=== PATIENT | female | born 1955 | race Caucasian/White ===

== ENCOUNTER 2023-08-31 08:53 | Outpatient (RCR) | payer MEDICARE, BC, SELFPAY | END 2023-09-27 23:59 | disposition home or self-care (01) | LOC: SCTC 08:53 | PROVIDERS: PCP Family Medicine; Referring Provider Family Medicine; Visit Provider Nurse Practitioner Family | DX: Z53.8 Procedure and treatment not carried out for other reasons (principal) ==

== ENCOUNTER → 2024-05-30 | Outpatient (CLI) | payer MEDICARE, BC, SELFPAY ==
[2024-05-30 10:21] LABS: Collection Type, Urine Clean Catch
[2024-05-30 10:57] LABS: Basophils # (Auto) 0.1 Thou/mm3 (0.0-0.2); Basophils % (Auto) 1 % (0-2.5); Eosinophils # (Auto) 0.2 Thou/mm3 (0.0-0.5); Eosinophils % (Auto) 5 % (0-10); Hematocrit 38.4 % (36.0-46.0); Immature Granulocytes % (Auto) 0 % (0-0); Immature Granulocytes Auto 0.01 Thou/mm3 (0.00-0.00); Lymphocytes # (Auto) 1.2 Thou/mm3 (1.0-4.8); Lymphocytes % (Auto) 33 % (10-50); Mean Corpuscular HGB Conc 33.9 g/dl (31.0-37.0); Mean Corpuscular Hemoglobin 32.1 pg (25.0-35.0); Mean Corpuscular Volume 95 fL (80-100); Monocytes # (Auto) 0.3 Thou/mm3 (0.0-0.8); Monocytes % (Auto) 9 % (0-12); Neutrophils # (Auto) 1.9 Thou/mm3 (1.8-7.7); Neutrophils % (Auto) 51 % (37-80); Nucleated Red Blood Cell % 0 /100 WBC (0); Platelet Count 227 Thou/mm3 (140-440); RDW Standard Deviation 42.7 fL (36.4-46.3); Red Blood Count 4.05 Miln/mm3 (4.00-5.20); White Blood Count 3.6 Thou/mm3 (3.6-11.0)
[2024-05-30 11:02] LABS: Bilirubin,Urine Negative (Negative); Blood,Urine Negative (Negative); Clarity,Urine Clear (Clear/Hazy); Color,Urine Colorless (Lt Yel-Yel); Culture Indicated,Urine Not Indicated; Glucose, Urine Negative (Negative); Ketones,Urine Negative (Negative); Leukocyte Esterase,Urine Negative (Negative); Nitrite,Urine Negative (Negative); PH,Urine 6.5 (5.0-7.0); Protein,Urine Negative (Neg - Trace); RBC,Urine < 1 /hpf (0-3); Specific Gravity,Urine 1.005 (1.001-1.035); Squamous Epithelial Cell,Urine < 1 /hpf (0-5); Urobilinogen,Urine Negative mg/dL (0.0-1.0); WBC,Urine < 1 /hpf (0-5)
[2024-05-30 11:05] LABS: Alanine Aminotransferase 18 U/L (10-49); Albumin, Serum 4.8 gm/dL (3.4-4.8); Albumin/Globulin Ratio 2.4 (1.2-2.2); Alkaline Phosphatase 89 U/L (46-116); Anion Gap 7 (7-16); Aspartate Amino Transferase 24 U/L (0-34); BUN/Creatinine Ratio 16 Ratio (12-20); Bilirubin,Total 0.7 mg/dL (0.3-1.2); Blood Urea Nitrogen 14 mg/dL (9-23); Calcium 9.3 mg/dL (8.3-10.6); Calcium (Corrected) 9.3 mg/dL (8.5-10.1); Carbon Dioxide 29.6 mMol/L (20.0-31.0); Cardiac Risk Estimate 2.7 RATIO (3.7-5.6); Chloride 101 mMol/L (98-107); Cholesterol 185 mg/dL (132-200); Creatinine (Component) 0.9 mg/dL (0.6-1.3); Glucose 95 mg/dL (74-106); HDL Cholesterol 68 mg/dL (40-60); LDL Cholesterol,Calculated 105 mg/dL (0-130); Osmolality,Calculated 276 (275-295); Potassium 4.1 mMol/L (3.4-5.1); Sodium 138 mMol/L (136-145); Total Protein 6.8 gm/dL (5.7-8.2); Triglycerides 60 mg/dL (30-150); eGFR > 60 See Note
[2024-05-30 11:47] LABS: CA 15-3 7.6 U/mL (<32.4); Carcinoembryonic Antigen 0.7 ng/mL (0.0-5.0); Vitamin B12 1323 pg/mL (211-911); Vitamin D 25 Hydroxy Total 28.8 ng/mL (7.3-40.2)
== END | disposition home or self-care (01) ==
LOC: SCTO 09:23
PROVIDERS: PCP Family Medicine; Referring Provider Physician Assistant; Visit Provider Internal Medicine Hematology & Oncology
DX: C50.512 Malignant neoplasm of lower-outer quadrant of left female breast (principal); E03.9 Hypothyroidism, unspecified; E55.9 Vitamin D deficiency, unspecified; D51.9 Vitamin B12 deficiency anemia, unspecified
CPT/HCPCS: 36415; 80053; 80061; 81001; 82306; 82378; 82607; 84443; 85025; 86300

== ENCOUNTER 2024-06-02 11:29 | Outpatient (RCR) | payer MEDICARE, BC, SELFPAY ==
--- NOTE | 2024-06-02 13:33 | CTCFLWUP_ITS ---
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 Status post lumpectomy and sentinel lymph node biop sy (01/02/2020). Oncotype DX recurrence score 11. Status post adjuvant radiation therapy to the left breast. 02/08/2020?05/05/2020: Patient tried anastrozole and was not able to tolerate the drug as she had persi stent and increasing hot flashes Unable to get exemestane due to financial reasons. Started on letrozole on 05/01/2022. Unable to tolerate letrozole due to brain fog symptoms and hot fl ashes patient started taking tamoxifen on 01/27/2023-02/10/2023, patient discontinued due to hot flashes. REASON FOR TODAY?S VISIT patient at this time is not taking any antiendocrine therapy. She is here f or physical exam. She is persistently having hot flashes. She saw fund controller and was recommend ed to taper off and levothyroxine. She is now 6 mcg every other day and still have worsening hot fla shes. Patient's hot flashes are mostly when she is alone [place] in the house and not when she is bus y while working. 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 She has 1 daughter who is an [employer] graduate senior systems software engineer. She says that sometimes she is stressed out but mostly does not know the triggers for her hot flashes. 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 Parviz t was taking estrogen plus progesterone pills for about 6 years to improve her postmenopausal symptom s. She stopped taking these pills on December 13, 2019.. She was taking hormone replacement because of her increased menopausal symptoms. 05/28/2018: Bilateral screening mammograms? 05/28/2018: Bone density study? 07/09/2018: Left breast diagnostic mammogram? 07/05/2019: 12/13/2019: Patient was seen by radiation oncologist Dr. Cochran in consultation. 01/02/2020: Patient had left breast lumpectomy and sentinel lymph node biopsy. Pathology showed the fo llowing. 02/03/2020: Oncotype DX recurrence score? 02/08/2020: Patient is started on anastrozole. 02/15/2020: Bilateral breast MRI? 02/29/2020?04/17/2020: Patient received 6600 cGy radiation to the left breast. 03/13/2020: Left breast diagnostic mammogram? 02/08/2020?05/05/2020: Patient tried anastrozole. Unfortunately she was not able to tolerate it due to significant hot flashes, generalized body aches, bone pains, palpitations. Anastrozole discontinued. 06/20/2021: Bone scan? 08/22/2021: Bilateral screening mammograms? 09/27/2021:Right breast ultrasound? 12/05/2021: CT scan of the chest with and without contrast? 05/01/2022: Ms. Iniguez started taking letrozole 2.5 mg p.o. daily. 08/29/2022: Mammogram screening bilateral 10/24/2022: Ultrasound bilateral breast complete 11/17/2022: DEXA Impression: There is osteopenia based on lumbar spine measurements. There is osteopenia based on hip measurements Lumbar mineralization is decreased 4.4% compared with 03/06/2020 Hip mineralization is decreased 5.6% compared with 03/06/2020 01/21/2023: Ultrasound bilateral breast complete 02/02/2023: CEA 0.9, CA 15-3 7.4 05/06/2023: CEA 0.6, CA 15-3 8.1 07/03/2023: MRI of bilateral breasts with and without contrast 07/16/2023: Left breast diagnostic mammogram 07/16/2023: Left breast ultrasound PAST MEDICAL HISTORY: childhood dx breast ca Sleep apnea, CPAP PAST SURGICAL HISTORY: Wrist MEDICATIONS: levothyroxine ALLERGIES: lidocaine HCl REVIEW OF SYSTEMS Neurological: No headache, seizures or blurring of vision. Gastrointestinal: No nausea, vomiting, diarrhea or constipation. Cardiovascular: No palpitations or angina pains. Respiratory: No cough, chest pain or shortness of breath. VITAL SIGNS: Date 06/02/2024 Time 11:36 AM Vital Signs, Weight and PS ? ??T (F) (F) 98 ??HR - Pulse 74 ??Respirations 18 ??B/P (mmHg) 104/65 ??Weight (lb) (lb) 184 ??BSA(D) (m*2) 1.99 ??Percent Weight Change 3 ? ??Initials MT PHYSICAL EXAMINATION: Alert oriented x 4 neck : Supple, no adenopathy. Ora clearl cavity: No Lesions. Chest is clear to auscultation. No wheezes or rales audible. CVS: Rhythm regular, no murmurs. Abdomen is soft. No hepatosplenomegaly. Extremities: No pedal edema, no cyanosis. Breast examination do not reveal any palpable masses in either breast ASSESSMENT and plan: #1 stage IIa (pT2, sN0), intermediate grade, ER positive, MO positive, HER-2/bonnie negative invasive ca rcinoma with ductal and lobular features of left breast. Status post lumpectomy and sentinel lymph node biopsy (). Oncotype DX recurrence score 11 (low risk disease). No benefit from adjuvant chemotherapy. Status post adjuvant radiation therapy to left breast. Patient was unable to tolerate anastrozole letrozole and then tamoxifen secondary to hot flashes. Yoni montano is not on any Endo endocrine therapy Will continue to monitor Mammogram planned in 6 months #2 hypothyroidism on levothyroxine On minimal dose of 6 mcg/day I discussed with the patient that it is unlikely helping her at this dose Hot flashes unlikely associated with such a tiny dose Advised to follow-up with fund controller Dr. Easley Taking citalopram for hot flashes, managed by PCP. #3 osteopenia DEXA 11/17/2022. On calcium and vitamin D Discussed starting Reclast Will check PTH levels Electronically signed by Dr Alarcon cc: La Paige, Referring: Mook Paige This document was completed utilizing speech recognition software. Grammatical errors, random word in sertions, pronoun errors, and incomplete sentences are an occasional consequence of this system due t o software limitations, ambient noise, and hardware issues. Any formal questions or concerns about th e content, text or information contained within the body of this dictation should be directly address ed to the provider for clarification. Patient: ALLI INIGUEZ : 1955 MR#: [id number] FOLLOW UP NOTE Page 2 of 3
== END 2024-06-28 23:59 | disposition home or self-care (01) ==
LOC: SCTC 11:29
PROVIDERS: PCP Family Medicine; Referring Provider Family Medicine; Visit Provider Internal Medicine Hematology & Oncology
DX: C50.512 Malignant neoplasm of lower-outer quadrant of left female breast (principal); Z17.0 Estrogen receptor positive status [ER+]; Z17.21 Progesterone receptor positive status; Z17.32 Human epidermal growth factor receptor 2 negative status; Z92.3 Personal history of irradiation; Z90.12 Acquired absence of left breast and nipple; M85.89 Other specified disorders of bone density and structure, multiple sites; E03.9 Hypothyroidism, unspecified; Z79.890 Hormone replacement therapy; E55.9 Vitamin D deficiency, unspecified; D51.9 Vitamin B12 deficiency anemia, unspecified
CPT/HCPCS: 82274; 99212; G0328; G0463

== ENCOUNTER → 2024-06-02 | Outpatient (CLI) | payer MEDICARE, BC, SELFPAY ==
[2024-06-06 06:57] LABS: Fecal Globin Result NOT DETECTED (NOT DETECTED)
== END | disposition home or self-care (01) ==
PROVIDERS: PCP Physician Assistant; Referring Provider Physician Assistant; Visit Provider Internal Medicine Hematology & Oncology
DX: E03.9 Hypothyroidism, unspecified (principal); E55.9 Vitamin D deficiency, unspecified; D51.9 Vitamin B12 deficiency anemia, unspecified
CPT/HCPCS: 82274; G0328

== ENCOUNTER → 2024-07-04 | Outpatient (CLI) | payer MEDICARE, BC, SELFPAY ==
[2024-07-04 11:36] LABS: Vitamin D 25 Hydroxy Total 28.5 ng/mL (7.3-40.2)
[2024-07-04 11:41] LABS: Alanine Aminotransferase 22 U/L (10-49); Albumin, Serum 4.8 gm/dL (3.4-4.8); Albumin/Globulin Ratio 2.1 (1.2-2.2); Alkaline Phosphatase 87 U/L (46-116); Anion Gap 9 (7-16); Aspartate Amino Transferase 21 U/L (0-34); BUN/Creatinine Ratio 19 Ratio (12-20); Bilirubin,Total 0.3 mg/dL (0.3-1.2); Blood Urea Nitrogen 17 mg/dL (9-23); Calcium 9.6 mg/dL (8.3-10.6); Calcium (Corrected) 9.6 mg/dL (8.5-10.1); Carbon Dioxide 28.3 mMol/L (20.0-31.0); Chloride 103 mMol/L (98-107); Creatinine (Component) 0.9 mg/dL (0.6-1.3); Free T4 (Free Thyroxine) 1.21 ng/dL (0.89-1.76); Globulin 2.3 gm/dL (2.3-3.5); Glucose 99 mg/dL (74-106); Osmolality,Calculated 280 (275-295); Potassium 4.2 mMol/L (3.4-5.1); Sodium 140 mMol/L (136-145); Thyroid Stimulating Hormone 0.84 uIU/mL (0.55-4.78); Total Protein 7.1 gm/dL (5.7-8.2); eGFR > 60 See Note
== END | disposition home or self-care (01) ==
LOC: COPL 10:07
PROVIDERS: PCP Physician Assistant; Referring Provider Internal Medicine Endocrinology, Diabetes & Metabolism; Visit Provider Internal Medicine Endocrinology, Diabetes & Metabolism
DX: E04.2 Nontoxic multinodular goiter (principal); M85.80 Other specified disorders of bone density and structure, unspecified site
CPT/HCPCS: 36415; 80053; 82306; 84439; 84443

== ENCOUNTER → 2024-07-28 | Outpatient (CLI) | payer MEDICARE, BC, SELFPAY ==
[2024-07-28 08:35] LABS: Basophils % (Auto) 1 % (0-2.5); Eosinophils # (Auto) 0.2 Thou/mm3 (0.0-0.5); Eosinophils % (Auto) 4 % (0-10); Hematocrit 39.6 % (36.0-46.0); Hemoglobin 13.1 g/dL (12.0-16.0); Immature Granulocytes % (Auto) 0 % (0-0); Immature Granulocytes Auto 0.01 Thou/mm3 (0.00-0.00); Lymphocytes % (Auto) 22 % (10-50); Mean Corpuscular HGB Conc 33.1 g/dl (31.0-37.0); Mean Corpuscular Hemoglobin 31.6 pg (25.0-35.0); Mean Corpuscular Volume 96 fL (80-100); Monocytes # (Auto) 0.3 Thou/mm3 (0.0-0.8); Monocytes % (Auto) 6 % (0-12); Neutrophils % (Auto) 67 % (37-80); Nucleated Red Blood Cell % 0 /100 WBC (0); Platelet Count 216 Thou/mm3 (140-440); RDW Standard Deviation 43.3 fL (36.4-46.3); Red Blood Count 4.14 Miln/mm3 (4.00-5.20); White Blood Count 4.6 Thou/mm3 (3.6-11.0)
[2024-07-28 08:57] LABS: Follicle Stimulating Hormone 52.72 mIU/mL (See Note)
[2024-07-28 09:02] LABS: Parathyroid Hormone Intact 55.5 pg/ml (18.5-88.0)
[2024-07-28 09:14] LABS: Alanine Aminotransferase 20 U/L (10-49); Albumin, Serum 4.5 gm/dL (3.4-4.8); Albumin/Globulin Ratio 1.9 (1.2-2.2); Alkaline Phosphatase 88 U/L (46-116); Anion Gap 7 (7-16); Aspartate Amino Transferase 19 U/L (0-34); BUN/Creatinine Ratio 24 Ratio (12-20); Bilirubin,Total 0.6 mg/dL (0.3-1.2); Blood Urea Nitrogen 19 mg/dL (9-23); Calcium 9.6 mg/dL (8.3-10.6); Calcium (Corrected) 9.6 mg/dL (8.5-10.1); Carbon Dioxide 30.1 mMol/L (20.0-31.0); Chloride 101 mMol/L (98-107); Creatinine (Component) 0.8 mg/dL (0.6-1.3); Globulin 2.4 gm/dL (2.3-3.5); Glucose 95 mg/dL (74-106); Osmolality,Calculated 277 (275-295); Sodium 138 mMol/L (136-145); Thyroid Stimulating Hormone 0.94 uIU/mL (0.55-4.78); Total Protein 6.9 gm/dL (5.7-8.2); eGFR > 60 See Note
[2024-08-08 06:37] LABS: Cortisol,total,LC/MS/MS* 11.3 mcg/dL; Luteinizing Hormone* 22.5 mIU/mL; T3,Total* 88 ng/dL (76-181); Testosterone,Total* 20 ng/dL (2-45)
== END | disposition home or self-care (01) ==
LOC: COPL 07:27
PROVIDERS: PCP Family Medicine; Referring Provider Internal Medicine Hematology & Oncology; Visit Provider Internal Medicine Hematology & Oncology
DX: C50.512 Malignant neoplasm of lower-outer quadrant of left female breast (principal)
CPT/HCPCS: 36415; 80053; 82533; 83001; 83002; 83970; 84403; 84443; 84480; 85025

== ENCOUNTER → 2024-08-11 | Outpatient (CLI) | payer MEDICARE, BC, SELFPAY ==
--- NOTE | 2024-08-11 12:30 | XR_ITS ---
Examination: Thyroid sonography complete TECHNIQUE: Grayscale sonographic images thyroid lobes with color flow analysis Exam date and time: August 11, 2024 1320 hours INDICATIONS: Thyroid sonogram May 28, 2023 bilateral thyroid nodules including biopsy upper pole right thyroid nodule May 28, 2023 biopsy upper pole left thyroid nodule May 28, 2023 FINDINGS: Right thyroid 4.5 x 2.1 x 1.8 cm Upper pole nodule 14 x 8 x 13 mm Midpole nodule 12 x 8 x 11 mm Lower pole nodule 6 x 6 x 7 mm The thyroid 4.8 x 1.4 x 1.6 cm Upper pole nodule 7 x 7 x 12 mm, 7 x 6 x 8 mm Midpole nodule 5 x 4 x 5 mm Lower pole nodule 17 x 13 x 14 mm IMPRESSION: Bilateral thyroid nodules again noted
== END | disposition home or self-care (01) ==
LOC: CDIM 12:38
PROVIDERS: PCP Family Medicine; Referring Provider Internal Medicine Endocrinology, Diabetes & Metabolism; Visit Provider Internal Medicine Endocrinology, Diabetes & Metabolism
DX: E04.2 Nontoxic multinodular goiter (principal)
CPT/HCPCS: 76536

== ENCOUNTER 2024-08-18 15:43 | Outpatient (RCR) | payer MEDICARE, BC, SELFPAY ==
--- NOTE | 2024-08-18 16:27 | CTCFLWUP_ITS ---
Patient: ALLI INIGUEZ : 1955 Page 2 of 2 FOLLOW UP NOTE DATE OF SERVICE: 08/18/2024 NAME: ALLI INIGUEZ ACCOUNT: [id number] : 1955 AGE: 69 INTERVAL HISTORY: Patient is not taking tamoxifen. She says she started having side effects. She feels more fatigued and tired while taking antiendocrine therapy. Patient was seen by lighting designer who stopped her levothyroxine. ONCOLOGY HISTORY: DIAGNOSIS: Malignant neoplasm of lower-outer quadrant of left female breast [ICD10] C50.512 Stage IIa (pT2, sN0), intermediate grade, ER positive, NC positive, HER-2/bonnie negative invasive carcinoma with ductal and lobular features of left breast. Status post lumpectomy and sentinel lymph node biopsy (01/02/2020). Oncotype DX recurrence score 11. Status post adjuvant radiation therapy to the left breast. 02/08/2020?05/05/2020: Patient tried anastrozole and was not able to tolerate the drug as she had persistent and increasing hot flashes Unable to get exemestane due to financial reasons. Started on letrozole on 05/01/2022. Unable to tolerate letrozole due to brain fog symptoms and hot flashes patient started taking tamoxifen on 01/27/2023- 02/10/2023, patient discontinued due to hot flashes. DATE OF DIAGNOSIS: (01/02/2020) STAGE/TNM: Stage IIa (pT2, sN0), intermediate grade, ER positive, NC positive, HER-2/bonnie negative invasive carcinoma with ductal and lobular features of left breast. TREATMENT HISTORY: Started on letrozole on 05/01/2022. Unable to tolerate letrozole due to brain fog symptoms and hot flashes patient started taking tamoxifen on 01/27/2023-02/10/2023, patient discontinued due to hot flashes. 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 Patient was taking estrogen plus progesterone pills for about 6 years to improve her postmenopausal symptoms. She stopped taking these pills on December 13, 2019.. She was taking hormone replacement because of her increased menopausal symptoms. 05/28/2018: Bilateral screening mammograms? 05/28/2018: Bone density study? 07/09/2018: Left breast diagnostic mammogram? 07/05/2019: 12/13/2019: Patient was seen by radiation oncologist Dr. Cochran in consultation. 01/02/2020: Patient had left breast lumpectomy and sentinel lymph node biopsy. Pathology showed the following. 02/03/2020: Oncotype DX recurrence score? 02/08/2020: Patient is started on anastrozole. 02/15/2020: Bilateral breast MRI? 02/29/2020?04/17/2020: Patient received 6600 cGy radiation to the left breast. 03/13/2020: Left breast diagnostic mammogram? 02/08/2020?05/05/2020: Patient tried anastrozole. Unfortunately she was not able to tolerate it due to significant hot flashes, generalized body aches, bone pains, palpitations. Anastrozole discontinued. 06/20/2021: Bone scan? 08/22/2021: Bilateral screening mammograms? 09/27/2021:Right breast ultrasound? 12/05/2021: CT scan of the chest with and without contrast? 05/01/2022: Ms. Iniguez started taking letrozole 2.5 mg p.o. daily. 08/29/2022: Mammogram screening bilateral 10/24/2022: Ultrasound bilateral breast complete 11/17/2022: DEXA Impression: There is osteopenia based on lumbar spine measurements. There is osteopenia based on hip measurements Lumbar mineralization is decreased 4.4% compared with 03/06/2020 Hip mineralization is decreased 5.6% compared with 03/06/2020 01/21/2023: Ultrasound bilateral breast complete 02/02/2023: CEA 0.9, CA 15-3 7.4 05/06/2023: CEA 0.6, CA 15-3 8.1 07/03/2023: MRI of bilateral breasts with and without contrast 07/16/2023: Left breast diagnostic mammogram 07/16/2023: Left breast ultrasound OTHER MEDICAL HISTORY/CONDITIONS: FAMILY HISTORY: ?Clone Family Hx? 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 levothyroxine - 25 mcg 0.5 tab Every other day?[place]abra Meds? Medications Last Reconciled by Marleni Mayes MA on 08/18/2024 ALLERGIES: lidocaine HCl REVIEW OF SYSTEMS: A complete 14-point review of systems was performed and is negative except as noted in interval history. PHYSICAL EXAMINATION: VITAL SIGNS: PAIN: 0 - No pain ECOG Performance Status: 0 - Asymptomatic and fully active GENERAL APPEARANCE: Appears well, in no apparent distress, appropriately interactive. HEENT: Normocephalic, no temporal wasting, normal conjunctiva, no scleral icterus, normal hearing, lips without lesions, neck normal range of motion. CARDIOVASCULAR: Not assessed. PULMONARY: Normal respiratory effort, no respiratory distress or use of accessory muscles, speaking in full sentences, no tachypnea. EXTREMITIES: No pedal edema or cyanosis. SKIN: Normal skin appearance. NEUROLOGIC: Alert and oriented x4. PSHYCHIATRIC: Appropriate affect, mood normal, behavior normal, intact thought and speech. LABORATORY DATA: I have personally reviewed and interpreted each of the patient?s relevant lab tests, abnormal findings are below: Date 07/28/24 ??WHITE?BLOOD?COUNT?(Thou/mm3) 4.6 ??RED?BLOOD?COUNT?(Miln/mm3) 4.14 ??HEMOGLOBIN?(gm/dl) 13.1 ??HEMATOCRIT?(%) 39.6 ??PLATELET?COUNT?(Thou/mm3) 216 ??NEUTROPHILS?%,?AUTO?(%) 67 ??LYMPH?%,?AUTO?(%) 22 ??NEUTROPHILS,?AUTO?(Thou/mm3) 3.0 ASSESSMENT/PLAN: #1 stage IIa (pT2, sN0), intermediate grade, ER positive, NC positive, HER-2/bonnie negative invasive carcinoma with ductal and lobular features of left breast. Status post lumpectomy and sentinel lymph node biopsy (). Oncotype DX recurrence score 11 (low risk disease). No benefit from adjuvant chemotherapy. Status post adjuvant radiation therapy to left breast. Patient was unable to tolerate anastrozole letrozole and then tamoxifen secondary to hot flashes. Patient is not on any Endo endocrine therapy Will continue to monitor Mammogram planned in 6 months #2 hypothyroidism on levothyroxine On minimal dose of 6 mcg/day I discussed with the patient that it is unlikely helping her at this dose Hot flashes unlikely associated with such a tiny dose Advised to follow-up with lighting designer Dr. Easley Taking citalopram for hot flashes, managed by PCP. #3 osteopenia DEXA 11/17/2022. On calcium and vitamin D Discussed starting Reclast Will check PTH levels ORDERS: Cbc,cmp,mammogram RETURN TO CLINIC: 6 months BILLING AND COMPLIANCE: I reviewed external records from providers outside my specialty as summarized above. I spent a total of 50 minutes on this patient?s care on the day of their visit excluding time spent related to any billed procedures. This time includes time spent with the patient as well as time spent documenting in the medical record, reviewing patients records and tests, obtaining history, placing orders, communicating with other healthcare professionals, counseling the patient, family or caregiver, and/or care coordination for the diagnoses above. Electronically Signed by: José Miguel Alarcon MD T: 4:24 PM CC: PCP: Mook Paige Referring: Mook Paige This document was completed utilizing speech recognition software. Grammatical errors, random word insertions, pronoun errors, and incomplete sentences are an occasional consequence of this system due to software limitations, ambient noise, and hardware issues. Any formal questions or concerns about the content, text or information contained within the body of this dictation should be directly addressed to the provider for clarification.
== END 2024-08-26 23:59 | disposition home or self-care (01) ==
LOC: SCTC 15:43
PROVIDERS: PCP Family Medicine; Referring Provider Family Medicine; Visit Provider Internal Medicine Hematology & Oncology
DX: C50.512 Malignant neoplasm of lower-outer quadrant of left female breast (principal); Z17.0 Estrogen receptor positive status [ER+]; Z17.21 Progesterone receptor positive status; Z17.32 Human epidermal growth factor receptor 2 negative status; Z90.12 Acquired absence of left breast and nipple; Z92.3 Personal history of irradiation; E03.9 Hypothyroidism, unspecified; M85.89 Other specified disorders of bone density and structure, multiple sites
CPT/HCPCS: 99212; G0463

== ENCOUNTER → 2024-09-30 | Outpatient (CLI) | payer MEDICARE, BC, SELFPAY ==
--- NOTE | 2024-09-30 11:15 | XR_ITS ---
Examination: Screening digital mammography, bilateral Computer aided detection 3-D breast Tomosynthesis, bilateral Date and time of exam: September 30, 2024 1112 hours Compared to mammograms dating to September 30, 2020 Indication: Screening, personal history left breast cancer Technique: Nonmagnified MLO, CC views of the breasts to been obtained, reconstructed from 3-D Tomosynthesis images. R2 computer aided detection program utilized for evaluation of suspicious masses and/or abnormal calcifications. 3-D Tomosynthesis images obtained. Findings: The breasts are heterogeneously dense, which may obscure small masses Stable architectural distortion outer left breast consistent with the patient's history treated left breast cancer Breast biopsy marker upper outer right breast No interval suspicious masses Impression: BI-RADS category II: Benign Findings. Recommend 1 year follow-up mammogram. Given the personal history breast cancer, consider repeat baseline bilateral breast sonography follow-up
== END | disposition home or self-care (01) ==
LOC: CDIM 10:55
PROVIDERS: PCP Physician Assistant; Referring Provider Internal Medicine Hematology & Oncology; Visit Provider Internal Medicine Hematology & Oncology
DX: Z12.31 Encounter for screening mammogram for malignant neoplasm of breast (principal); R92.323 Mammographic fibroglandular density, bilateral breasts; Z85.3 Personal history of malignant neoplasm of breast
CPT/HCPCS: 77063; 77067

== ENCOUNTER → 2024-10-06 | Outpatient (CLI) | payer MEDICARE, BC, SELFPAY ==
[2024-10-06 08:37] LABS: Basophils % (Auto) 1 % (0-2.5); Eosinophils # (Auto) 0.1 Thou/mm3 (0.0-0.5); Eosinophils % (Auto) 4 % (0-10); Hemoglobin 12.7 g/dL (12.0-16.0); Immature Granulocytes % (Auto) 0 % (0-0); Immature Granulocytes Auto 0.01 Thou/mm3 (0.00-0.00); Lymphocytes # (Auto) 1.1 Thou/mm3 (1.0-4.8); Lymphocytes % (Auto) 28 % (10-50); Mean Corpuscular HGB Conc 33.4 g/dl (31.0-37.0); Mean Corpuscular Volume 96 fL (80-100); Monocytes # (Auto) 0.3 Thou/mm3 (0.0-0.8); Monocytes % (Auto) 8 % (0-12); Neutrophils # (Auto) 2.3 Thou/mm3 (1.8-7.7); Neutrophils % (Auto) 59 % (37-80); Nucleated Red Blood Cell % 0 /100 WBC (0); Platelet Count 226 Thou/mm3 (140-440); RDW Standard Deviation 43.3 fL (36.4-46.3); Red Blood Count 3.97 Miln/mm3 (4.00-5.20); White Blood Count 3.9 Thou/mm3 (3.6-11.0)
[2024-10-06 08:50] LABS: Alanine Aminotransferase 18 U/L (10-49); Albumin, Serum 4.6 gm/dL (3.4-4.8); Albumin/Globulin Ratio 1.8 (1.2-2.2); Alkaline Phosphatase 87 U/L (46-116); Anion Gap 7 (7-16); Aspartate Amino Transferase 22 U/L (0-34); BUN/Creatinine Ratio 18 Ratio (12-20); Bilirubin,Total 0.6 mg/dL (0.3-1.2); Blood Urea Nitrogen 14 mg/dL (9-23); Calcium 9.4 mg/dL (8.3-10.6); Calcium (Corrected) 9.4 mg/dL (8.5-10.1); Carbon Dioxide 28.4 mMol/L (20.0-31.0); Chloride 105 mMol/L (98-107); Creatinine (Component) 0.8 mg/dL (0.6-1.3); Free T4 (Free Thyroxine) 1.07 ng/dL (0.89-1.76); Globulin 2.5 gm/dL (2.3-3.5); Glucose 99 mg/dL (74-106); Osmolality,Calculated 279 (275-295); Potassium 3.9 mMol/L (3.4-5.1); Sodium 140 mMol/L (136-145); Thyroid Stimulating Hormone 0.97 uIU/mL (0.55-4.78); Total Protein 7.1 gm/dL (5.7-8.2); eGFR > 60 See Note
[2024-10-06 08:59] LABS: CA 15-3 9.4 U/mL (<32.4)
[2024-10-11 06:36] LABS: T3,Total* 91 ng/dL (76-181)
== END | disposition home or self-care (01) ==
LOC: COPL 07:35
PROVIDERS: PCP Internal Medicine Endocrinology, Diabetes & Metabolism; Referring Provider Physician Assistant; Visit Provider Internal Medicine Hematology & Oncology
DX: C50.512 Malignant neoplasm of lower-outer quadrant of left female breast (principal); E04.2 Nontoxic multinodular goiter; M85.80 Other specified disorders of bone density and structure, unspecified site
CPT/HCPCS: 36415; 80053; 84439; 84443; 84480; 85025; 86300

== ENCOUNTER → 2024-10-20 | Outpatient (CLI) | payer MEDICARE, BC, SELFPAY ==
--- NOTE | 2024-10-20 09:15 | XR_ITS ---
Examination: Breast ultrasound complete, bilateral Date and time of exam: October 20, 2024 0911 hours INDICATIONS: Mammogram September 30, 2024 architectural distortion upper outer left breast, personal history breast cancer Technique: Real-time grayscale ultrasonographic imaging bilateral breasts, including all 4 quadrants as well as nipple retroareolar and axillary regions. Findings: Sonographic images right breast No cystic or solid mass Sonographic images left breast 12:00 nodule lobular margins 4 x 4 millimeter 2:00 cyst 3 x 3 mm IMPRESSION: BI-RADS Category 3: Probably benign findings Recommend 1 additional 6 month left breast sonogram follow-up to document stability of 12:00 nodule left breast
== END | disposition home or self-care (01) ==
LOC: CDIM 08:53
PROVIDERS: PCP Family Medicine; Referring Provider Physician Assistant; Visit Provider Physician Assistant
DX: N63.25 Unspecified lump in the left breast, overlapping quadrants (principal); R92.333 Mammographic heterogeneous density, bilateral breasts
CPT/HCPCS: 76641

== ENCOUNTER 2024-10-27 13:08 | Outpatient (RCR) | payer MEDICARE, BC, SELFPAY ==
--- NOTE | 2024-10-31 06:12 | CTCFLWUP_ITS ---
Patient: ALLI INIGUEZ : 1955 Page 9 of 11 FOLLOW UP NOTE DATE OF SERVICE: 10/27/2024 NAME: ALLI INIGUEZ ACCOUNT: [id number] : 1955 AGE: 69 INTERVAL HISTORY: Alli Iniguez, a breast cancer patient in 5-year remission, presented with fatigue and sleep disturbances from exemestane therapy. She temporarily discontinued the medication during a recent sinus infection and possible COVID illness, now taking it 3-5 days weekly after dinner. Recent mammogram and ultrasound were negative. The plan includes continuing exemestane with the current schedule, monitoring energy levels, implementing sleep hygiene techniques for hot flashes, and maintaining her Medicare with [employer] supplement due to better coverage if chemotherapy becomes necessary. Chief Complaint Fatigue from exemestane, hot flashes disturbing sleep History of Present Illness Alli Iniguez, a patient with a history of breast cancer, presents for follow-up after recent imaging and to discuss ongoing hormone therapy. She has been cancer-free for 5 years but is experiencing side effects from exemestane treatment. The patient reports struggling with fatigue related to exemestane use. She temporarily discontinued the medication during a recent sinus infection and possible brief COVID illness. Sleep disturbances, particularly hot flashes and interpreter deaf wake-ups, are affecting her quality of life despite having a cold bedroom environment. She currently takes exemestane after dinner but is finding it challenging to maintain consistent adherence due to the side effects. The patient expresses concern about her health insurance coverage, considering a switch from her current Basic Medicare with a [employer] supplement to an HMO like [employer]. She is aware that this change could potentially impact her coverage for chemotherapy if needed in the future. Medical History - Breast cancer, in remission for 5 years - Sinus infection, recent - Possible COVID-19 infection, recent Medications and Supplements - Exemestane - Taken after dinner. - Causing fatigue. - Stopped temporarily due to sinus infection and possible brief COVID. - Resumed taking 3-5 days a week. - May have fewer side effects compared to other medications due to steroidal effect. Social History - Insurance: Currently on Basic Medicare with a [employer] supplement. Considering switching to [employer], which accepts most insurances including HMOs like [employer]ir[employer]. - Sleep: Experiences sleep disturbances due to hot flashes and interpreter deaf wake-ups. Has a cold bedroom. Review of Systems General: Positive for fatigue. HEENT: Positive for sinus infection. Psychiatric: Positive for sleep disturbances, interpreter deaf wake-ups. Endocrine: Positive for hot flashes. ONCOLOGY HISTORY:?[facility] Hx? 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 Status post lumpectomy and sentinel lymph node biopsy (01/02/2020). Oncotype DX recurrence score 11. Status post adjuvant radiation therapy to the left breast. 02/08/2020?05/05/2020: Patient tried anastrozole and was not able to tolerate the drug as she had persistent and increasing hot flashes Unable to get exemestane due to financial reasons. Started on letrozole on 05/01/2022. Unable to tolerate letrozole due to brain fog symptoms and hot flashes patient started taking tamoxifen on 01/27/2023- 02/10/2023, patient discontinued due to hot flashes. 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 Patient was taking estrogen plus progesterone pills for about 6 years to improve her postmenopausal symptoms. She stopped taking these pills on December 13, 2019.. She was taking hormone replacement because of her increased menopausal symptoms. 05/28/2018: Bilateral screening mammograms? 05/28/2018: Bone density study? 07/09/2018: Left breast diagnostic mammogram? 07/05/2019: 12/13/2019: Patient was seen by radiation oncologist Dr. Cochran in consultation. 01/02/2020: Patient had left breast lumpectomy and sentinel lymph node biopsy. Pathology showed the following. 02/03/2020: Oncotype DX recurrence score? 02/08/2020: Patient is started on anastrozole. 02/15/2020: Bilateral breast MRI? 02/29/2020?04/17/2020: Patient received 6600 cGy radiation to the left breast. 03/13/2020: Left breast diagnostic mammogram? 02/08/2020?05/05/2020: Patient tried anastrozole. Unfortunately she was not able to tolerate it due to significant hot flashes, generalized body aches, bone pains, palpitations. Anastrozole discontinued. 06/20/2021: Bone scan? 08/22/2021: Bilateral screening mammograms? 09/27/2021:Right breast ultrasound? 12/05/2021: CT scan of the chest with and without contrast? 05/01/2022: Ms. Iniguez started taking letrozole 2.5 mg p.o. daily. 08/29/2022: Mammogram screening bilateral 10/24/2022: Ultrasound bilateral breast complete 11/17/2022: DEXA Impression: There is osteopenia based on lumbar spine measurements. There is osteopenia based on hip measurements Lumbar mineralization is decreased 4.4% compared with 03/06/2020 Hip mineralization is decreased 5.6% compared with 03/06/2020 01/21/2023: Ultrasound bilateral breast complete 02/02/2023: CEA 0.9, CA 15-3 7.4 05/06/2023: CEA 0.6, CA 15-3 8.1 07/03/2023: MRI of bilateral breasts with and without contrast 07/16/2023: Left breast diagnostic mammogram 07/16/2023: Left breast ultrasound OTHER MEDICAL HISTORY/CONDITIONS: FAMILY HISTORY: ?Clone Family Hx? 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 exemestane - 25 mg 1 tab Daily?Palabra Meds? Medications Last Reconciled by Marleni Mayes MA on 10/27/2024 ALLERGIES: lidocaine HCl REVIEW OF SYSTEMS: A complete 14-point review of systems was performed and is negative except as noted in interval history. PHYSICAL EXAMINATION:?[facility] PE? VITAL SIGNS: Temperature?98, B/P?117/77, Oxygen?Saturation?99% Weight?185?lbs PAIN: 0 - No pain ECOG Performance Status: 0 - Asymptomatic and fully active GENERAL APPEARANCE: Appears well, in no apparent distress, appropriately interactive. HEENT: Normocephalic, no temporal wasting, normal conjunctiva, no scleral icterus, normal hearing, lips without lesions, neck normal range of motion. CARDIOVASCULAR: Not assessed. PULMONARY: Normal respiratory effort, no respiratory distress or use of accessory muscles, speaking in full sentences, no tachypnea. EXTREMITIES: No pedal edema or cyanosis. SKIN: Normal skin appearance. NEUROLOGIC: Alert and oriented x4. PSHYCHIATRIC: Appropriate affect, mood normal, behavior normal, intact thought and speech. LABORATORY DATA: I have personally reviewed and interpreted each of the patient?s relevant lab tests, abnormal findings are below: Date 07/28/24 10/06/24 ??WHITE?BLOOD?COUNT?(Thou/mm3) 4.6 3.9 ??RED?BLOOD?COUNT?(Miln/mm3) 4.14 3.97?L ??HEMOGLOBIN?(gm/dl) 13.1 12.7 ??HEMATOCRIT?(%) 39.6 38.0 ??PLATELET?COUNT?(Thou/mm3) 216 226 ??NEUTROPHILS?%,?AUTO?(%) 67 59 ??LYMPH?%,?AUTO?(%) 22 28 ??NEUTROPHILS,?AUTO?(Thou/mm3) 3.0 2.3 ??GLUCOSE,RANDOM?(mg/dL) 95 99 ??BLOOD?UREA?NITROGEN?(mg/dL) 19 14 ??CREATININE?(mg/dL) 0.80 0.80 ??SODIUM?(mmol/L) 138 140 ??POTASSIUM?(mmol/L) 4.0 3.9 ??CHLORIDE?(mmol/L) 101 105 ??CrCl?(CandG)?(ml/min) 89.91 78.31 ??AST/SGOT?(Unit/L) 19 22 ??ALT/SGPT?(Unit/L) 20 18 ??ALKALINE?PHOSPHATASE?(Unit/L) 88 87 ??BILIRUBIN,?TOTAL?(mg/dL) 0.6 0.6 ??PROTEIN?TOTAL?(gm/dl) 6.9 7.1 ??ALBUMIN,?SERUM?(gm/dl) 4.5 4.6 ??GLOBULIN?(gm/dl) 2.4 2.5 ??ALBUMIN/GLOBULIN?RATIO 1.9 1.8 ??CALCIUM,?SERUM?(mg/dL) 9.6 9.4 ??CALCIUM?SERUM?(CORRECTED)?(mg/dL) 9.6 9.4 ASSESSMENT/PLAN:?AdrianaMorteza Tariqinder Assessment/Plan? 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 Status post lumpectomy and sentinel lymph node biopsy (). Oncotype DX recurrence score 11 (low risk disease). No benefit from adjuvant chemotherapy. Status post adjuvant radiation therapy to left breast. Patient was unable to tolerate anastrozole letrozole and then tamoxifen secondary to hot flashes. Patient is not on any Endo endocrine therapy Will continue to monitor Mammogram planned in 6 months Breast Cancer Follow-up Assessment: Patient is 5 years post-breast cancer treatment without recurrence. Recent mammogram and ultrasound were both negative. The primary care physician has scheduled a repeat ultrasound in 6 months. Given the duration without recurrence, the risk of needing chemotherapy is lower. Plan: - Follow up with primary care physician for scheduled repeat ultrasound in 6 months - Continue current insurance coverage (Basic Medicare with [employer] [place] supplement) due to comprehensive coverage if chemotherapy is needed Hormone Therapy Side Effects Assessment: Patient reports struggling with exemestane, experiencing fatigue. She temporarily discontinued the medication during a recent sinus infection and possible brief COVID-19 infection. Hot flashes are disturbing her sleep, with interpreter deaf wake-ups despite a cold bedroom environment. Plan: - Resume exemestane, aiming for 3-5 days per week if daily dosing is not tolerable - Continue taking exemestane after dinner - Monitor and track energy levels daily, noting best and worst days to identify patterns - [place] with sleep hygiene techniques to manage hot flashes and improve sleep quality - Follow up to reassess medication tolerance and side effect management #2 hypothyroidism on levothyroxine On minimal dose of 6 mcg/day I discussed with the patient that it is unlikely helping her at this dose Hot flashes unlikely associated with such a tiny dose Advised to follow-up with director security risk management Dr. Easley Taking citalopram for hot flashes, managed by PCP. #3 osteopenia DEXA 11/17/2022. On calcium and vitamin D Discussed starting Reclast Will check PTH levels ORDERS: Order # Description [id number] Follow Up 6 Month RETURN TO CLINIC: BILLING AND COMPLIANCE: I reviewed external records from providers outside my specialty as summarized above. I spent a total of 50 minutes on this patient?s care on the day of their visit excluding time spent related to any billed procedures. This time includes time spent with the patient as well as time spent documenting in the medical record, reviewing patients records and tests, obtaining history, placing orders, communicating with other healthcare professionals, counseling the patient, family or caregiver, and/or care coordination for the diagnoses above. Electronically Signed by: José Miguel Alarcon MD T: 6:10 AM CC: PCP: Mook Paige Referring: Mook Paige This document was completed utilizing speech recognition software. Grammatical errors, random word insertions, pronoun errors, and incomplete sentences are an occasional consequence of this system due to software limitations, ambient noise, and hardware issues. Any formal questions or concerns about the content, text or information contained within the body of this dictation should be directly addressed to the provider for clarification.
== END 2024-11-26 23:59 | disposition home or self-care (01) ==
LOC: SCTC 13:08
PROVIDERS: PCP Family Medicine; Referring Provider Family Medicine; Visit Provider Internal Medicine Hematology & Oncology
DX: C50.512 Malignant neoplasm of lower-outer quadrant of left female breast (principal); Z17.0 Estrogen receptor positive status [ER+]; Z17.21 Progesterone receptor positive status; Z17.32 Human epidermal growth factor receptor 2 negative status; Z90.12 Acquired absence of left breast and nipple; Z79.811 Long term (current) use of aromatase inhibitors; E03.9 Hypothyroidism, unspecified; Z79.890 Hormone replacement therapy; M85.80 Other specified disorders of bone density and structure, unspecified site
CPT/HCPCS: 99212; G0463

== ENCOUNTER → 2024-11-16 | Outpatient (CLI) | payer MEDICARE, BC, SELFPAY ==
[2024-11-16 08:55] LABS: Alanine Aminotransferase 20 U/L (10-49); Albumin, Serum 4.5 gm/dL (3.4-4.8); Albumin/Globulin Ratio 1.8 (1.2-2.2); Alkaline Phosphatase 83 U/L (46-116); Anion Gap 8 (7-16); Aspartate Amino Transferase 22 U/L (0-34); BUN/Creatinine Ratio 17 Ratio (12-20); Bilirubin,Total 0.6 mg/dL (0.3-1.2); Blood Urea Nitrogen 15 mg/dL (9-23); Calcium 9.1 mg/dL (8.3-10.6); Calcium (Corrected) 9.1 mg/dL (8.5-10.1); Carbon Dioxide 29.7 mMol/L (20.0-31.0); Cardiac Risk Estimate 2.6 RATIO (3.7-5.6); Chloride 104 mMol/L (98-107); Cholesterol 180 mg/dL (132-200); Creatinine (Component) 0.9 mg/dL (0.6-1.3); Globulin 2.5 gm/dL (2.3-3.5); Glucose 102 mg/dL (74-106); HDL Cholesterol 70 mg/dL (40-60); LDL Cholesterol,Calculated 96 mg/dL (0-130); Osmolality,Calculated 283 (275-295); Potassium 4.3 mMol/L (3.4-5.1); Sodium 142 mMol/L (136-145); Thyroid Stimulating Hormone 1.05 uIU/mL (0.55-4.78); Triglycerides 68 mg/dL (30-150); eGFR > 60 See Note
== END | disposition home or self-care (01) ==
LOC: COPL 07:23
PROVIDERS: PCP Family Medicine; Referring Provider Physician Assistant; Visit Provider Physician Assistant
DX: E78.5 Hyperlipidemia, unspecified (principal); E03.9 Hypothyroidism, unspecified
CPT/HCPCS: 36415; 80053; 80061; 84443

== ENCOUNTER → 2024-12-19 | Outpatient (CLI) | payer MEDICARE, BC, SELFPAY ==
--- NOTE | 2024-12-19 13:40 | XR_ITS ---
Examination: Bone densitometry Date and time of exam:December 19, 2024 1352 hours INDICATIONS: Menopause age 55 postmenopausal wrist fracture 2016 calcium and vitamin D 10 years, personal history osteopenia Technique: Lumbar spine and hip total bone mineralization values of an calculated. Peak reference and age match control results have been displayed. Findings: Lumbar spine total bone mineralization is0.861 gm/cm2. This is 1.7 standard deviations below peak reference. This is 0.3 standard deviations above age-matched controls. Hip total bone mineralization is 0.774 gm/cm2 This is 1.4 standard deviations below peak reference. This is 0.0 standard deviations at age-matched controls Impression: There is osteopenia based on lumbar spine measurements. There is osteopenia based on hip measurements Lumbar mineralization is increased 3.2% compared with November 17, 2022 Hip mineralization is decreased 1.5% compared with November 17, 2022
== END | disposition home or self-care (01) ==
LOC: CDIM 13:29
PROVIDERS: Referring Provider Physician Assistant; Visit Provider Physician Assistant
DX: M85.88 Other specified disorders of bone density and structure, other site (principal); M85.862 Other specified disorders of bone density and structure, left lower leg; M85.861 Other specified disorders of bone density and structure, right lower leg
CPT/HCPCS: 77080

== ENCOUNTER → 2025-01-23 | Outpatient (CLI) | payer MEDICARE, BC, SELFPAY ==
[2025-01-23 08:55] LABS: Free T4 (Free Thyroxine) 1.21 ng/dL (0.89-1.76); Thyroid Stimulating Hormone 0.85 uIU/mL (0.55-4.78)
== END | disposition home or self-care (01) ==
LOC: COPL 07:46
PROVIDERS: PCP Family Medicine; Referring Provider Internal Medicine Endocrinology, Diabetes & Metabolism; Visit Provider Internal Medicine Endocrinology, Diabetes & Metabolism
DX: E04.2 Nontoxic multinodular goiter (principal); M85.80 Other specified disorders of bone density and structure, unspecified site
CPT/HCPCS: 36415; 84439; 84443

== ENCOUNTER 2025-05-04 11:07 | Outpatient (RCR) | payer MEDICARE, BC, SELFPAY ==
--- NOTE | 2025-05-04 12:04 | CTCFLWUP_ITS ---
Patient: ALLI INIGUEZ : 1955 Page 2 of 2 FOLLOW UP NOTE DATE OF SERVICE: 05/04/2025 NAME: ALLI INIGUEZ ACCOUNT: [id number] : 1955 AGE: 70 INTERVAL HISTORY: Alli Iniguez, a breast cancer patient is on exemestane therapy.patient is taking antiendocrine therapy as tolerated and do not take regularly . Recent mammogram and ultrasound were negative. The plan includes continuing exemestane with the current schedule, monitoring energy levels, implementing sleep hygiene techniques for hot flashes, and maintaining her Medicare with [employer] supplement due to better coverage if chemotherapy becomes necessary. Chief Complaint Fatigue from exemestane, hot flashes disturbing sleep History of Present Illness Alli Iniguez, a patient with a history of breast cancer, presents for follow-up after recent imaging and to discuss ongoing hormone therapy. She has been cancer-free for 5 years but is experiencing side effects from exemestane treatment. The patient reports struggling with fatigue related to exemestane use. She temporarily discontinued the medication during a recent sinus infection and possible brief COVID illness. Sleep disturbances, particularly hot flashes and fish header wake-ups, are affecting her quality of life despite having a cold bedroom environment. She currently takes exemestane after dinner but is finding it challenging to maintain consistent adherence due to the side effects. The patient expresses concern about her health insurance coverage, considering a switch from her current Basic Medicare with a [employer] supplement to an HMO like [employer] She is aware that this change could potentially impact her coverage for chemotherapy if needed in the future. Medical History - Breast cancer, in remission for 5 years - Sinus infection, recent - Possible COVID-19 infection, recent Medications and Supplements - Exemestane - Taken after dinner. - Causing fatigue. - Stopped temporarily due to sinus infection and possible brief COVID. - Resumed taking 3-5 days a week. - May have fewer side effects compared to other medications due to steroidal effect. Social History - Insurance: Currently on Basic Medicare with a [employer] supplement. Considering switching to [facility], which accepts most insurances including HMOs like [employer] - Sleep: Experiences sleep disturbances due to hot flashes and fish header wake-ups. Has a cold bedroom. Review of Systems General: Positive for fatigue. HEENT: Positive for sinus infection. Psychiatric: Positive for sleep disturbances, fish header wake-ups. Endocrine: Positive for hot flashes. ONCOLOGY HISTORY:?[facility] Hx? 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 Status post lumpectomy and sentinel lymph node biopsy (01/02/2020). Oncotype DX recurrence score 11. Status post adjuvant radiation therapy to the left breast. 02/08/2020?05/05/2020: Patient tried anastrozole and was not able to tolerate the drug as she had persistent and increasing hot flashes Unable to get exemestane due to financial reasons. Started on letrozole on 05/01/2022. Unable to tolerate letrozole due to brain fog symptoms and hot flashes patient started taking tamoxifen on 01/27/2023- 02/10/2023, patient discontinued due to hot flashes. 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 Patient was taking estrogen plus progesterone pills for about 6 years to improve her postmenopausal symptoms. She stopped taking these pills on December 13, 2019.. She was taking hormone replacement because of her increased menopausal symptoms. 05/28/2018: Bilateral screening mammograms? 05/28/2018: Bone density study? 07/09/2018: Left breast diagnostic mammogram? 07/05/2019: 12/13/2019: Patient was seen by radiation oncologist Dr. Cochran in consultation. 01/02/2020: Patient had left breast lumpectomy and sentinel lymph node biopsy. Pathology showed the following. 02/03/2020: Oncotype DX recurrence score? 02/08/2020: Patient is started on anastrozole. 02/15/2020: Bilateral breast MRI? 02/29/2020?04/17/2020: Patient received 6600 cGy radiation to the left breast. 03/13/2020: Left breast diagnostic mammogram? 02/08/2020?05/05/2020: Patient tried anastrozole. Unfortunately she was not able to tolerate it due to significant hot flashes, generalized body aches, bone pains, palpitations. Anastrozole discontinued. 06/20/2021: Bone scan? 08/22/2021: Bilateral screening mammograms? 09/27/2021:Right breast ultrasound? 12/05/2021: CT scan of the chest with and without contrast? 05/01/2022: Ms. Iniguez started taking letrozole 2.5 mg p.o. daily. 08/29/2022: Mammogram screening bilateral 10/24/2022: Ultrasound bilateral breast complete 11/17/2022: DEXA Impression: There is osteopenia based on lumbar spine measurements. There is osteopenia based on hip measurements Lumbar mineralization is decreased 4.4% compared with 03/06/2020 Hip mineralization is decreased 5.6% compared with 03/06/2020 01/21/2023: Ultrasound bilateral breast complete 02/02/2023: CEA 0.9, CA 15-3 7.4 05/06/2023: CEA 0.6, CA 15-3 8.1 07/03/2023: MRI of bilateral breasts with and without contrast 07/16/2023: Left breast diagnostic mammogram 07/16/2023: Left breast ultrasound OTHER MEDICAL HISTORY/CONDITIONS: FAMILY HISTORY: ?Clone Family Hx? 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 exemestane - 25 mg 1 tab Daily?Palabra Meds? Medications Last Reconciled by Marleni Marcos MD on 05/04/2025 ALLERGIES: lidocaine HCl REVIEW OF SYSTEMS: A complete 14-point review of systems was performed and is negative except as noted in interval history. PHYSICAL EXAMINATION:?[facility] PE? VITAL SIGNS: Temperature?98.6, B/P?128/74, Oxygen?Saturation?100% Weight?185?lbs PAIN: 0 - No pain ECOG Performance Status: 0 - Asymptomatic and fully active GENERAL APPEARANCE: Appears well, in no apparent distress, appropriately interactive. HEENT: Normocephalic, no temporal wasting, normal conjunctiva, no scleral icterus, normal hearing, lips without lesions, neck normal range of motion. CARDIOVASCULAR: Not assessed. PULMONARY: Normal respiratory effort, no respiratory distress or use of accessory muscles, speaking in full sentences, no tachypnea. EXTREMITIES: No pedal edema or cyanosis. SKIN: Normal skin appearance. NEUROLOGIC: Alert and oriented x4. PSHYCHIATRIC: Appropriate affect, mood normal, behavior normal, intact thought and speech. LABORATORY DATA: I have personally reviewed and interpreted each of the patient?s relevant lab tests, abnormal findings are below: Date 07/28/24 10/06/24 11/16/24 ??WHITE?BLOOD?COUNT?(Thou/mm3) 4.6 3.9 ? ??RED?BLOOD?COUNT?(Miln/mm3) 4.14 3.97?L ? ??HEMOGLOBIN?(gm/dl) 13.1 12.7 ? ??HEMATOCRIT?(%) 39.6 38.0 ? ??PLATELET?COUNT?(Thou/mm3) 216 226 ? ??NEUTROPHILS?%,?AUTO?(%) 67 59 ? ??LYMPH?%,?AUTO?(%) 22 28 ? ??NEUTROPHILS,?AUTO?(Thou/mm3) 3.0 2.3 ? ??GLUCOSE,RANDOM?(mg/dL) ? 99 102 ??BLOOD?UREA?NITROGEN?(mg/dL) ? 14 15 ??CREATININE?(mg/dL) ? 0.80 0.90 ??SODIUM?(mmol/L) ? 140 142 ??POTASSIUM?(mmol/L) ? 3.9 4.3 ??CHLORIDE?(mmol/L) ? 105 104 ??CrCl?(CandG)?(ml/min) ? 78.31 69.09 ??AST/SGOT?(Unit/L) ? 22 22 ??ALT/SGPT?(Unit/L) ? 18 20 ??ALKALINE?PHOSPHATASE?(Unit/L) ? 87 83 ??BILIRUBIN,?TOTAL?(mg/dL) ? 0.6 0.6 ??PROTEIN?TOTAL?(gm/dl) ? 7.1 7.0 ??ALBUMIN,?SERUM?(gm/dl) ? 4.6 4.5 ??GLOBULIN?(gm/dl) ? 2.5 2.5 ??ALBUMIN/GLOBULIN?RATIO ? 1.8 1.8 ??CALCIUM,?SERUM?(mg/dL) ? 9.4 9.1 ??CALCIUM?SERUM?(CORRECTED)?(mg/dL) ? 9.4 9.1 ASSESSMENT/PLAN:?AdrianaMorteza Agnes Assessment/Plan? 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 Status post lumpectomy and sentinel lymph node biopsy (). Oncotype DX recurrence score 11 (low risk disease). No benefit from adjuvant chemotherapy. Status post adjuvant radiation therapy to left breast. Patient was unable to tolerate anastrozole letrozole and then tamoxifen secondary to hot flashes. Patient is not on any Endo endocrine therapy Will continue to monitor Mammogram planned in 6 months Breast Cancer Follow-up Assessment: Patient is 5 years post-breast cancer treatment without recurrence. Recent mammogram and ultrasound were both negative. The primary care physician has scheduled a repeat ultrasound in 6 months. Given the duration without recurrence, the risk of needing chemotherapy is lower. Plan: - Follow up with primary care physician for scheduled repeat ultrasound in 6 months - Continue current insurance coverage (Basic Medicare with [employer] supplement) due to comprehensive coverage if chemotherapy is needed Hormone Therapy Side Effects Assessment: Patient reports struggling with exemestane, experiencing fatigue. She temporarily discontinued the medication during a recent sinus infection and possible brief COVID-19 infection. Hot flashes are disturbing her sleep, with fish header wake-ups despite a cold bedroom environment. Plan: - Resume exemestane, aiming for 3-5 days per week if daily dosing is not tolerable - Continue taking exemestane after dinner - Monitor and track energy levels daily, noting best and worst days to identify patterns - [place] with sleep hygiene techniques to manage hot flashes and improve sleep quality - Follow up to reassess medication tolerance and side effect management #2 hypothyroidism on levothyroxine On minimal dose of 6 mcg/day I discussed with the patient that it is unlikely helping her at this dose Hot flashes unlikely associated with such a tiny dose Advised to follow-up with facilities custodian Dr. Easley Taking citalopram for hot flashes, managed by PCP. #3 osteopenia DEXA 11/17/2022. On calcium and vitamin D Discussed starting Reclast Will check PTH levels Start Zometa to help bone density RETURN TO CLINIC: I reviewed the diagnosis, prognosis, and recommended treatment/procedure options with the patient (and/or their legal signs sales representative), including the potential benefits, risks, side effects and alternative therapies. We also discussed the option of no treatment and the possibility of clinical trial participation, if applicable. All questions were addressed, and they demonstrated understanding. They provided informed consent to proceed with the proposed plan of care. BILLING AND COMPLIANCE: I reviewed external records from providers outside my specialty as summarized above. I spent a total of 50 minutes on this patient?s care on the day of their visit excluding time spent related to any billed procedures. This time includes time spent with the patient as well as time spent documenting in the medical record, reviewing patients records and tests, obtaining history, placing orders, communicating with other healthcare professionals, counseling the patient, family or caregiver, and/or care coordination for the diagnoses above. Electronically Signed by: José Miguel Alarcon MD T: 12:02 PM CC: PCP: Mook Paige Referring: Mook Paige This document was completed utilizing speech recognition software. Grammatical errors, random word insertions, pronoun errors, and incomplete sentences are an occasional consequence of this system due to software limitations, ambient noise, and hardware issues. Any formal questions or concerns about the content, text or information contained within the body of this dictation should be directly addressed to the provider for clarification.
== END 2025-05-28 23:59 | disposition home or self-care (01) ==
LOC: SCTC 11:07
PROVIDERS: PCP Family Medicine; Referring Provider Family Medicine; Visit Provider Internal Medicine Hematology & Oncology
DX: C50.512 Malignant neoplasm of lower-outer quadrant of left female breast (principal); Z17.0 Estrogen receptor positive status [ER+]; Z17.21 Progesterone receptor positive status; Z17.32 Human epidermal growth factor receptor 2 negative status; Z92.3 Personal history of irradiation; R53.83 Other fatigue; T45.1X5D Adverse effect of antineoplastic and immunosuppressive drugs, subsequent encounter; Z79.811 Long term (current) use of aromatase inhibitors; E03.9 Hypothyroidism, unspecified; M85.89 Other specified disorders of bone density and structure, multiple sites
CPT/HCPCS: 99212; G0463

== ENCOUNTER → 2025-05-05 | Outpatient (CLI) | payer MEDICARE, BC, SELFPAY ==
[2025-05-05 09:28] LABS: Basophils # (Auto) 0.0 Thou/mm3 (0.0-0.2); Basophils % (Auto) 1 % (0-2.5); Eosinophils # (Auto) 0.1 Thou/mm3 (0.0-0.5); Eosinophils % (Auto) 5 % (0-10); Hematocrit 36.4 % (36.0-46.0); Hemoglobin 12.4 g/dL (12.0-16.0); Immature Granulocytes Auto 0.00 Thou/mm3 (0.00-0.00); Lymphocytes # (Auto) 0.9 Thou/mm3 (1.0-4.8); Lymphocytes % (Auto) 29 % (10-50); Mean Corpuscular HGB Conc 34.1 g/dl (31.0-37.0); Mean Corpuscular Hemoglobin 32.1 pg (25.0-35.0); Mean Corpuscular Volume 94 fL (80-100); Monocytes # (Auto) 0.3 Thou/mm3 (0.0-0.8); Monocytes % (Auto) 9 % (0-12); Neutrophils # (Auto) 1.7 Thou/mm3 (1.8-7.7); Neutrophils % (Auto) 56 % (37-80); Nucleated Red Blood Cell # 0.00 Thou/mm3 (0.00-0.00); Nucleated Red Blood Cell % 0 /100 WBC (0); Platelet Count 197 Thou/mm3 (140-440); RDW Standard Deviation 42.0 fL (36.4-46.3); Red Blood Count 3.86 Miln/mm3 (4.00-5.20); White Blood Count 3.0 Thou/mm3 (3.6-11.0)
[2025-05-05 09:51] LABS: Vitamin B12 952 pg/mL (211-911); Vitamin D 25 Hydroxy Total 37.0 ng/mL (7.3-40.2)
[2025-05-05 10:20] LABS: Collection Type, Urine Clean Catch
[2025-05-05 10:29] LABS: Alanine Aminotransferase 18 U/L (10-49); Albumin, Serum 4.7 gm/dL (3.4-4.8); Albumin/Globulin Ratio 2.5 (1.2-2.2); Alkaline Phosphatase 85 U/L (46-116); Anion Gap 8 (7-16); Aspartate Amino Transferase 24 U/L (0-34); BUN/Creatinine Ratio 13 Ratio (12-20); Bilirubin,Direct 0.2 mg/dL (0.0-0.3); Bilirubin,Total 0.6 mg/dL (0.3-1.2); Blood Urea Nitrogen 12 mg/dL (9-23); Calcium 9.2 mg/dL (8.3-10.6); Calcium (Corrected) 9.2 mg/dL (8.5-10.1); Carbon Dioxide 29.4 mMol/L (20.0-31.0); Cardiac Risk Estimate 2.6 RATIO (3.7-5.6); Chloride 104 mMol/L (98-107); Cholesterol 159 mg/dL (132-200); Creatinine (Component) 0.9 mg/dL (0.6-1.3); Free T4 (Free Thyroxine) 1.20 ng/dL (0.89-1.76); Globulin 1.9 gm/dL (2.3-3.5); Glucose 100 mg/dL (74-106); HDL Cholesterol 61 mg/dL (40-60); LDL Cholesterol,Calculated 87 mg/dL (0-130); Osmolality,Calculated 280 (275-295); Potassium 4.3 mMol/L (3.4-5.1); Sodium 141 mMol/L (136-145); Thyroid Stimulating Hormone 1.12 uIU/mL (0.55-4.78); Total Protein 6.6 gm/dL (5.7-8.2); Triglycerides 56 mg/dL (30-150); eGFR > 60 See Note
[2025-05-05 10:43] LABS: Bilirubin,Urine Negative (Negative); Blood,Urine Negative (Negative); Clarity,Urine Clear (Clear/Hazy); Color,Urine Colorless (Lt Yel-Yel); Culture Indicated,Urine Not Indicated; Glucose, Urine Negative (Negative); Ketones,Urine Negative (Negative); Leukocyte Esterase,Urine Positive (Negative); Nitrite,Urine Negative (Negative); PH,Urine 7.5 (5.0-7.0); Protein,Urine Negative (Neg - Trace); RBC,Urine 3 /hpf (0-3); Specific Gravity,Urine 1.006 (1.001-1.035); Squamous Epithelial Cell,Urine 1 /hpf (0-5); Urobilinogen,Urine Negative mg/dL (0.0-1.0); WBC,Urine 3 /hpf (0-5)
--- NOTE | 2025-05-05 11:15 | XR_ITS ---
Examination: Breast ultrasound, unilateral, left complete Date and time of exam: May 05, 2025, 0835 hours INDICATIONS: Left breast sonogram October 20, 2024 12:00 nodule 4 x 4 millimeter, personal history of breast cancer Technique: Real-time alvarado scale ultrasonographic imaging performed left breast including all 4 quadrants as well as nipple retroareolar and axillary region. Findings: 12:00 nodule circumscribed 3 x 6 mm 2:00 cyst 3 x 3 mm IMPRESSION: BI-RADS Category 3: Probably benign findings Nodule in the 12 o'clock position has increased in size although circumscribed, suggest continued 6-month follow-up left breast sonogram
== END | disposition home or self-care (01) ==
LOC: CDIM 08:09 → COPL 05-11 12:43
PROVIDERS: PCP Internal Medicine Cardiovascular Disease; Referring Provider Physician Assistant; Visit Provider Radiology Diagnostic Radiology
DX: N63.20 Unspecified lump in the left breast, unspecified quadrant (principal); I10 Essential (primary) hypertension; E03.9 Hypothyroidism, unspecified; I49.9 Cardiac arrhythmia, unspecified; E78.5 Hyperlipidemia, unspecified; E55.9 Vitamin D deficiency, unspecified; D51.9 Vitamin B12 deficiency anemia, unspecified
CPT/HCPCS: 36415; 76641; 80053; 80061; 81001; 82248; 82306; 82607; 84439; 84443; 85025

== ENCOUNTER → 2025-05-11 | Outpatient (CLI) | payer MEDICARE, BC, SELFPAY ==
[2025-05-16 06:25] LABS: Fecal Globin Result NOT DETECTED (NOT DETECTED)
== END | disposition home or self-care (01) ==
LOC: SLDO 13:07
PROVIDERS: Referring Provider Physician Assistant; Visit Provider Physician Assistant
DX: E03.9 Hypothyroidism, unspecified (principal); E78.5 Hyperlipidemia, unspecified; E55.9 Vitamin D deficiency, unspecified; D51.9 Vitamin B12 deficiency anemia, unspecified
CPT/HCPCS: 82274; G0328